=== PATIENT | male | born 1970 | race Caucasian/White ===

== ENCOUNTER 2019-10-21 20:33 | Emergency (ER) | payer MEDICAID ==
[~2019-10-21] VITALS: Ht 177.8 cm; Wt 115.0 kg
--- NOTE | 2019-10-21 21:25 | NUR ---
Patient BIB [facility] from home. Patient's father called for ETOH abuse stating he is unable to help care for his son any longer because he drinks too much. Patient states he drinks approx 1/5 per day of vodka. 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 His last drink was vodka at approx 1700 tonight. Patient c/o general "not feeling well." Also has left shoulder pain and right ankle pain from previous injuries; this is not new pain. Patient is in NAD. Respirations even and unlabored.
--- NOTE | 2019-10-21 21:43 | NUR ---
Report received from [facility]. Plan of care discussed
[2019-10-21] MEDS ORDERED: LORazepam 2 MG/ML, 1ML ONE (21:54)
--- NOTE | 2019-10-21 21:54 | NUR ---
report given to adolfo byrne
[2019-10-21] MEDS ORDERED: PLEASE ENTER ALLERGIES MC SCH (22:00)
[2019-10-21] MEDS ORDERED: LORazepam 2 MG/ML, 1ML IM ONE (22:00)
[2019-10-21 22:31] LABS: BASOPHILS # (AUTO) 0.06 x10^3/uL (0-0.1); BASOPHILS % (AUTO) 1 % (0-1); EOSINOPHILS # (AUTO) 0.16 x10^3/uL (0-0.4); EOSINOPHILS % (AUTO) 3 % (1-7); LYMPHOCYTES # (AUTO) 3.21 x10^3/uL (1-3.4); LYMPHOCYTES % (AUTO) 49 % (22-44); MD NO; MEAN CORPUSCULAR HEMOGLOBIN 33.4 pg (27.5-34.5); MEAN CORPUSCULAR HGB CONC 33.3 g/dL (33.2-36.2); MEAN CORPUSCULAR VOLUME 100.2 fL (81-97); MEAN PLATELET VOLUME 8.8 fL (7.4-10.4); MONOCYTES # (AUTO) 0.56 x10^3/uL (0.2-0.8); MONOCYTES % (AUTO) 9 % (2-9); NEUTROPHILS # (AUTO) 2.56 x10^3/uL (1.8-6.8); NEUTROPHILS % (AUTO) 39 % (42-75); PLATELET COUNT 197 x10^3/uL (130-400); RED BLOOD COUNT 3.71 x10^6/uL (4.38-5.82); RED CELL DISTRIBUTION WIDTH 14.6 % (9.4-14.8)
[2019-10-21 22:43] LABS: ALANINE AMINOTRANSFERASE 29 U/L (12-78); ALBUMIN 3.2 g/dL (3.4-5.0); ANION GAP 6 mmol/L (5-15); CALCIUM 8.1 mg/dL (8.5-10.1); CHLORIDE 118 mmol/L (98-107); CREATININE 0.94 mg/dL (0.7-1.3)
[2019-10-21 22:45] LABS: ALKALINE PHOSPHATASE 81 U/L (45-117); BILIRUBIN,TOTAL 0.2 mg/dL (0.2-1.0); TOTAL PROTEIN 6.9 g/dL (6.4-8.2)
--- NOTE | 2019-10-21 23:00 | NUR ---
ALL LABS BACK, PATIENT UP FOR RECHECK. PATIENT REQUESTING TO LEAVE
--- NOTE | 2019-10-21 23:28 | NUR ---
Patient given discharge instructions and they have confirmed that they understand the instructions. Patient ambulatory with steady gait.
[2019-10-21 23:29] VITALS: BP 127/77
== END 2019-10-21 23:31 | disposition home or self-care (01) ==
LOC: ED 23:00
DX: F10.129 Alcohol abuse with intoxication, unspecified (principal); F41.9 Anxiety disorder, unspecified; Y90.9 Presence of alcohol in blood, level not specified
CPT/HCPCS: 36415; 80053; 80307; 85025; 96372; 99283; J2060